=== PATIENT | female | born 1950 | race American Indian/Alaskan Native ===

== ENCOUNTER 2017-01-27 14:49 | Outpatient (CLI) | payer OTHER | END 2017-01-27 14:50 | disposition home or self-care (01) | LOC: LABHHL 14:49 | PROVIDERS: ATTEND Surgery | DX: N60.11 Diffuse cystic mastopathy of right breast (principal); N62 Hypertrophy of breast | CPT/HCPCS: 88305 ==

== ENCOUNTER 2017-02-25 13:12 | Outpatient (CLI) | payer OTHER ==
--- NOTE | 2017-02-27 14:44 | Magnetic Resonance Report ---
BILATERAL BREAST MRI WITHOUT AND WITH CONTRAST: 02/25/17 13:12:00 CLINICAL: High risk for breast cancer with a personal history of ADH and a family history of ovarian cancer. 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 COMPARISON:11/27/16 bilateral screening mammogram and right mammograms from 01/16/17 and 01/27/17. TECHNIQUE: Axial 1.0-mm T1 without, axial high resolution 2.0-mm T2 and axial 1.0-mm dynamic Vibrant high-resolution postcontrast T1 fat saturation sequences on a 1.5 Lisha magnet. The examination was performed with an 8 channel dedicated [employer] breast coil. Post processing with CAD and subtraction was performed on an [employer] workstation. 15.0 cc of Multihance was injected without incident via a right antecubital vein 22-gauge INT for the contrast portion of the exam. Consent was obtained prior to the administration of the contrast. FINDINGS: Right: Mild background parenchymal enhancement. Irregular non-Mass enhancement at the right stereotactic biopsy site measures 19.3 x 13.7 x 8.9 mm. It demonstrates heterogeneous enhancement with mixed kinetics, 109% peak enhancement and 1% type III washout. A circumscribed oval slightly irregular enhancing mass of the skin at 11 o'clock 8.4 cm from the nipple measures 5.8 x 3.7 x 3.7 mm. The characteristics are typical of a benign sebaceous cyst. No other mass and no other suspicious enhancement of the right breast. No suspicious right axillary or right internal mammary lymph nodes. Left: Minimal background parenchymal enhancement. No mass or suspicious enhancement of the left breast. No suspicious left axillary or left internal mammary lymph nodes. IMPRESSION: Suspicious non-Mass enhancement at the stereotactic biopsy site which is somewhat discordant with the mammographic findings and the pathology. Recommend surgical excision. RIGHT BI-RADS 4 -- Suspicious LEFT BI-RADS 1 -- Negative
== END 2017-02-25 13:13 | disposition home or self-care (01) ==
LOC: SPVIMAG 13:12
PROVIDERS: ATTEND Surgery
DX: N60.81 Other benign mammary dysplasias of right breast (principal); R92.1 Mammographic calcification found on diagnostic imaging of breast; R92.2 Inconclusive mammogram; N60.11 Diffuse cystic mastopathy of right breast; N60.12 Diffuse cystic mastopathy of left breast; N62 Hypertrophy of breast; Z80.41 Family history of malignant neoplasm of ovary
CPT/HCPCS: 0159T; A9577; C8908; 77059

== ENCOUNTER 2017-03-17 10:39 | Outpatient (CLI) | payer OTHER ==
--- NOTE | 2017-03-17 15:22 | Magnetic Resonance Report ---
MRI GUIDED VACUUM ASSISTED CORE BIOPSY RIGHT BREAST: 03/17/17 10:39:00 CLINICAL: Status post recent right stereotactic breast biopsy for calcifications and discordant pathology. There was some question as to whether the clip deployment was discordant. MRI demonstrated suspicious non-Mass enhancement adjacent to the clip. FINDINGS: Consent for the procedure was obtained. A Vibrant dynamic postcontrast series was performed on a 1.5 Lisha magnet using an 8 channel [employer] dedicated breast coil. The lesion was localized and targeted using [employer] biopsy software. The skin was anesthetized with 1% lidocaine and a small dermatotomy was made. 2% lidocaine was administered for deeper anesthesia. 9-G biopsy was performed with an [employer] vacuum assisted device. Imaging demonstrated satisfactory positioning of the probe and samples were obtained. A clip was placed after confirmation of adequate sampling. The probe was removed and hemostasis was achieved with pressure to the site. A sterile dressing was applied. The patient tolerated the procedure well and there were no apparent complications. A two view mammogram demonstrated concordant clip placement. The MRI biopsy clip is approximately 2 cm away from the stereotactic biopsy clip. The patient left the department in good condition and was given instructions for wound care and follow-up. IMPRESSION: Uncomplicated MRI biopsy with clip placement right breast.
--- NOTE | 2017-03-18 09:10 | Mammography Report ---
RIGHT DIGITAL DIAGNOSTIC MAMMOGRAM: 03/17/17 10:39:00 CLINICAL: For clip placement immediately status post MRI biopsy. COMPARISON:01/27/17 FINDINGS: A second biopsy clip is now identified at the site of MRI biopsy. The clip is approximately 2 cm more cephalad an approximately 1 cm anterior to the previous biopsy clip. IMPRESSION: Concordant clip placement status post MRI biopsy. BI-RADS CATEGORY: 4--Suspicious Pathology pending.
== END 2017-03-17 10:40 | disposition home or self-care (01) ==
LOC: SPVIMAG 10:39
PROVIDERS: ATTEND Surgery
DX: C50.911 Malignant neoplasm of unspecified site of right female breast (principal); N60.91 Unspecified benign mammary dysplasia of right breast; N64.89 Other specified disorders of breast
CPT/HCPCS: 19085; 88305; A9577; G0206